=== PATIENT | male | born 1965 | race Asian ===

== ENCOUNTER 2019-01-23 12:01 | Day surgery (SDC) | payer OTHER ==
[2019-01-23] VITALS (223 sets, daily range): BP systolic 106–157; BP diastolic 60–93; PULSE 76–98; TEMP 98.4–98.6; O2SAT 92–100
[~2019-01-23] VITALS: Ht 153.7 cm; Wt 80.0 kg
[2019-01-23 13:01] LABS: HEMOGLOBIN 16.9 g/dl (13.5-18.0); MEAN CELL VOLUME 93 fl (80.0-100.0); MEAN CORPUSCULAR HEMOGLOBIN 33 pg (27.0-31.0); MEAN CORPUSCULAR HGB CONC 35 g/dl (33.0-37.0); MEAN PLATELET VOLUME 8.6 fl (7.4-10.4); PLATELET COUNT 186 K/mm3 (130-400); RED BLOOD COUNT 5.16 M/mm3 (4.20-5.60)
[2019-01-23 13:02] LABS: INR 1.1 (0.8-3.0); PROTHROMBIN TIME 12.3 SECONDS (9.7-12.8)
[2019-01-23 13:11] LABS: CREATININE, serum 0.69 (0.66-1.25); POTASSIUM 3.8 mmol/L (3.4-5.0)
[2019-01-23] MEDS ORDERED: ASPIRIN 81M81 MG/TA2 PO (13:35)
[2019-01-23] MEDS ORDERED: CLARITIN 1010 MG/TAB PO (13:35)
[2019-01-23] MEDS ORDERED: NORVASC 10MG10 MG PO (13:35)
--- NOTE | 2019-01-23 15:46 | NUR ---
Pt to procedure,report to Tamica Esposito.
--- NOTE | 2019-01-23 15:56 | NUR ---
SEE MERGE DOCUMENTATION FOR MEDICATION ADMINISTRATION TIMES AND INTRA/POST PROCEDURE SEDATION ASSESSMENTS.
--- NOTE | 2019-01-23 18:38 | NUR ---
Dinner ordered, ate 100% no c/o nausea. Denies pain.
--- NOTE | 2019-01-23 18:39 | NUR ---
Voids per urinal
--- NOTE | 2019-01-23 19:30 | NUR ---
Bedside report received from KIRT García
--- NOTE | 2019-01-23 20:00 | NUR ---
Patient awake and alert and oriented x4. Patient speaks very little Slovak, but is at bedside to translate. Assessment complete. Patient's lungs are clear in all lowery. HR and rhythm are regular with normal S1 and S2 heard. Bowel sounds are active x4. Patient's peripheral pulses are all palpable. No edema noted. Patient has no complaints of pain or SOA. Patient has no current needs at this time. Will continue to monitor. Call light within reach.
[2019-01-24] VITALS (421 sets, daily range): BP systolic 117–137; BP diastolic 79–96; PULSE 71–82; TEMP 98.6–99.6; O2SAT 92–100
--- NOTE | 2019-01-24 | NUR ---
Patient awake in bed resting. No complaints of pain. More air is taken out of the TR band. Vitals are obtained and remain stable. Patient has no further needs at this time. Will continue to monitor. Call light within reach.
--- NOTE | 2019-01-24 04:00 | NUR ---
Patient asleep but awakens to name, no complaints of pain. Vitals obtained and remain stable. No needs at this time. Last of air taken out of TR Band. Will continue to monitor. Call light within reach.
[2019-01-24 05:14] LABS: BASO % 0.6 % (0.0-2.0); EOS # 0.1 (0.0-0.7); EOS % 2.4 % (0-4.0); GRAN # 3.1 (1.4-6.5); GRAN % 62.8 % (42.2-75.2); HEMATOCRIT 42.6 % (42.0-52.0); LYMPH # 1.1 (1.2-3.4); LYMPH % 21.8 % (20.0-51.0); MEAN CELL VOLUME 94 fl (80.0-100.0); MEAN CORPUSCULAR HEMOGLOBIN 33 pg (27.0-31.0); MEAN CORPUSCULAR HGB CONC 35 g/dl (33.0-37.0); MEAN PLATELET VOLUME 8.8 fl (7.4-10.4); MONO # 0.6 (0.1-0.6); MONO % 12.2 % (1.7-9.3); PLATELET COUNT 186 K/mm3 (130-400); RED BLOOD COUNT 4.55 M/mm3 (4.20-5.60)
[2019-01-24 05:23] LABS: CREATININE, serum 0.64 (0.66-1.25); POTASSIUM 3.8 mmol/L (3.4-5.0)
[2019-01-24 05:36] LABS: HEMOGLOBIN 14.9 g/dl (13.5-18.0)
--- NOTE | 2019-01-24 07:45 | NUR ---
Bedside shift report received from KIRT Bradshaw. Patient is sitting up in bed, alert, awake, and responds appropriately. at bedside. Full assessment completed. Dr. Dillard at bedside to assess patient for discharge. Vital signs stable. Call light within reach. Bed in lowest position. Side rails up x2.
--- NOTE | 2019-01-24 07:51 | NUR ---
Bedside report given to KIRT Arroyo. Cath site assessed and remains soft, pulse palpable. Transfer of care at this time
[2019-01-24] MEDS ORDERED: NORVASC 10MG10 MG PO (07:54)
[2019-01-24] MEDS ORDERED: PLAVIX 75MG TAB75 MG PO (07:54)
[2019-01-24] MEDS ORDERED: NITROSTAT0.4 MG/TAB SL (07:54)
[2019-01-24] MEDS ORDERED: ASPIRIN 81M81 MG/TA2 PO (07:55)
[2019-01-24] MEDS ORDERED: BD POSIFLUSH SF10 ML IV ×4 (07:56→07:57)
[2019-01-24] MEDS ORDERED: ASPI325T6 PO ×2 (07:56)
[2019-01-24] MEDS ORDERED: CLARITIN 1010 MG/TAB PO (07:58)
[2019-01-24 08:30] LABS: CHOLESTEROL RISK RATIO 3.6
--- NOTE | 2019-01-24 10:01 | NUR ---
Client declined visit.
--- NOTE | 2019-01-24 10:02 | NUR ---
Patient educated on discharge instructions. able to translate what the patient did not understand. Patient and have no complaints or concerns at this time. Patient's IV discontinued and gets dressed independently with no complications.
--- NOTE | 2019-01-24 10:05 | NUR ---
Patient and escorted to personal vehicle with no complications.
== END 2019-01-24 10:05 | disposition home or self-care (01) ==
LOC: COL.CAR 12:01 → ICU 17:23 → COL.CAR 01-24 10:05
PROVIDERS: Internal Medicine Interventional Cardiology
DX: R94.39 Abnormal result of other cardiovascular function study (principal); R06.02 Shortness of breath; I25.10 Atherosclerotic heart disease of native coronary artery without angina pectoris; I10 Essential (primary) hypertension; Z88.8 Allergy status to other drugs, medicaments and biological substances; E78.5 Hyperlipidemia, unspecified; E88.81 Metabolic syndrome and other insulin resistance; Z82.49 Family history of ischemic heart disease and other diseases of the circulatory system; I27.20 Pulmonary hypertension, unspecified; N62 Hypertrophy of breast; G47.30 Sleep apnea, unspecified; E66.9 Obesity, unspecified; Z68.33 Body mass index [BMI] 33.0-33.9, adult; Z87.891 Personal history of nicotine dependence; Z79.899 Other long term (current) drug therapy; Z80.9 Family history of malignant neoplasm, unspecified
CPT/HCPCS: OP; C1725; C1769; C1874; C1887; C9600; J0583; J1644; J2250; J3010; Q9967